=== PATIENT | male | born 1945 | race Caucasian/White ===

== ENCOUNTER → 2016-12-28 | Outpatient (CLI) | payer OTHER ==
[~2016-12-28] MED LIST: GADOBUTROL 10 MMOL/10 ML VIAL ONE
== END | disposition home or self-care (01) ==
LOC: CFH 09:01
PROVIDERS: ATTEND Family Medicine
DX: D48.0 Neoplasm of uncertain behavior of bone and articular cartilage (principal); M25.442 Effusion, left hand; M25.742 Osteophyte, left hand
CPT/HCPCS: 73220; A9585

== ENCOUNTER 2017-02-15 09:33 | Day surgery (SDC) | payer OTHER ==
[~2017-02-15] VITALS: Ht 172.7 cm; Wt 77.4 kg
[2017-02-15] MEDS ORDERED: SODIUM CHLORIDE 0.9% 1,000 ML IV SCH (10:11)
[2017-02-15] MEDS ORDERED: NONE PER PT (10:12)
[2017-02-15 10:13] VITALS: BP 149/88
[2017-02-15] MEDS ORDERED: LIDOCAINE 1%, 20ML ONE (10:49)
[2017-02-15] MEDS ORDERED: FENTANYL PF 100 MCG/2ML ONE (10:52)
[2017-02-15] MEDS ORDERED: MIDAZOLAM 1 MG/ML, 5ML ONE (10:52)
[2017-02-15] MEDS ORDERED: NALOXONE 1 MG/ML, 2ML ONE (10:53)
[2017-02-15] MEDS ORDERED: FLUMAZENIL 0.1 MG/1 ML, 5ML ONE (10:53)
== END 2017-02-15 12:30 | disposition home or self-care (01) ==
LOC: OUT 09:33
PROVIDERS: ATTEND Urology
DX: C64.9 Malignant neoplasm of unspecified kidney, except renal pelvis (principal); N28.89 Other specified disorders of kidney and ureter; R91.8 Other nonspecific abnormal finding of lung field
CPT/HCPCS: 36415; 50200; 77012; 85610; 88305; 99156; J2250; J3010; J3490; J7030; 99157; J2310

== ENCOUNTER → 2017-03-18 | Outpatient (CLI) | payer OTHER ==
[~2017-03-18] MED LIST changes: -GADOBUTROL 10 MMOL/10 ML VIAL ONE; +GADOBUTROL 7.5 MMOL/7.5 ML PFS ONE; +NONE PER PT
== END | disposition home or self-care (01) ==
LOC: CFH 08:29
PROVIDERS: ATTEND Specialist
DX: R90.82 White matter disease, unspecified (principal); I73.9 Peripheral vascular disease, unspecified; C64.2 Malignant neoplasm of left kidney, except renal pelvis
CPT/HCPCS: 70553; 78306; A9503; A9585

== ENCOUNTER → 2017-06-15 | Outpatient (CLI) | payer OTHER ==
[~2017-06-15] MED LIST changes: -GADOBUTROL 7.5 MMOL/7.5 ML PFS ONE; +OMNIPAQUE 350 MG/ML, 100ML BOTTLE ONE
== END | disposition home or self-care (01) ==
LOC: PETCFH 11:17
PROVIDERS: ATTEND Specialist
DX: C64.2 Malignant neoplasm of left kidney, except renal pelvis (principal); C79.71 Secondary malignant neoplasm of right adrenal gland; C79.51 Secondary malignant neoplasm of bone; C78.01 Secondary malignant neoplasm of right lung; C78.02 Secondary malignant neoplasm of left lung
CPT/HCPCS: 71260; 74177; 78306; A9503; Q9967